=== PATIENT | female | born 1995 | race Caucasian/White ===

== ENCOUNTER → 2021-12-05 09:04 | Outpatient (CLI) | payer BC, SELFPAY ==
--- NOTE | ~2021-12-05 | US_ITS ---
EXAMINATION: US pelvic complete w TV DATE: 12/05/2021 09:41 INDICATION: Abnormal uterine bleeding Comparison:No prior studies for comparison. TECHNIQUE: Multiple transabdominal and endovaginal sonographic images of the pelvis performed. FINDINGS: The uterus measures 7.6 x 3.4 x 5.4 cm. The endometrial complex measures 4 mm. The right ovary measures 2.8 x 1.2 x 2.6 cm and the left ovary measures 3.2 x 2.7 x 1.7 cm.. There a re small follicles in each ovary. Normal doppler signal in both ovaries. There is trace free fluid in the pelvis. There are no abnormal masses seen on either side. IMPRESSION: 1. Unremarkable pelvic ultrasound. Reviewed, dictated and finalized at location A.
== END ==
PROVIDERS: PCP Nurse Practitioner Family; Visit Provider Registered Nurse School
DX: N93.9 Abnormal uterine and vaginal bleeding, unspecified (principal)
CPT/HCPCS: 76830; 76856